=== PATIENT | male | born 1965 | race American Indian/Alaskan Native ===

== ENCOUNTER 2016-08-09 11:43 | Observation (INO) | payer MEDICAID ==
[2016-08-09] MEDS ORDERED: Sodium Chloride 0.9% 1,000 ML IV STA (12:41)
--- NOTE | 2016-08-09 12:45 | ED PDOC ---
HPI: General Adult Time Seen by Provider: 08/09/16 12:28 Chief Complaint (Nursing): Weakness/Neurological Deficit Chief Complaint (Provider): Weakness History Per: Patient, Family History/Exam Limitations: no limitations Onset/Duration Of Symptoms: Days Additional Complaint(s): Pt. with weakness all over, nasal congestion. Has high blood pressure and low blood sugar at doctor's office yesterday so was sent to the ED. Was suppose to come yesterday, but decided to come today. Feels sleepy and tired. No chest pain or dyspnea. Feels light-headed. No abd pain, dysuria. No numbness, tingles. Past Medical History Reviewed: Nursing Documentation, Vital Signs Vital Signs: Last Vital Signs Temp 97 F L 08/09/16 12:01 Pulse 63 08/09/16 12:01 Resp 16 08/09/16 12:01 BP 127/59 L 08/09/16 12:01 Pulse Ox 98 08/09/16 12:46 - Medical History PMH: Diabetes (Insulin dependent), HIV, HTN, Hypercholesterolemia, Chronic Kidney Disease - Family History Family History: States: Unknown Family Hx - Living Arrangements Living Arrangements: With Family - Social History Current smoker - smoking cessation education provided: Yes Alcohol: None - Immunization History Hx Tetanus Toxoid Vaccination: No Hx Influenza Vaccination: No Hx Pneumococcal Vaccination: No - Home Medications Home Medications: Ambulatory Orders Medication Instructions Recorded Docusate [Colace] 100 mg PO TID #90 cap 04/06/15 Insulin Human NPH/Reg [humulin 20 units SC DAILY 04/06/15 70/30 70 U/Ml-30 U/Ml 10 Ml] Magnesium Citrate [Citrate of Mag] 300 ml PO ONCE #1 bottle 04/06/15 Methadone Hydrochloride [Methadone] 30 mg PO DAILY 04/06/15 - Allergies Allergies/Adverse Reactions: Allergies Allergy/AdvReac Type Severity Reaction Status Date / Time No Known Allergies Allergy Unverified 01/21/15 20:54 Review of Systems ROS Statement: Except As Marked, All Systems Reviewed And Found Negative Constitutional: Positive for: Weakness ENT: Positive for: Nose Pain, Nose Congestion Cardiovascular: Positive for: Light Headedness Neurological: Positive for: Weakness, Dizziness Physical Exam - Reviewed Nursing Documentation Reviewed: Yes Vital Signs Reviewed: Yes - Physical Exam Appears: Positive for: Non-toxic, No Acute Distress Head Exam: Positive for: ATRAUMATIC, NORMAL INSPECTION, NORMOCEPHALIC Skin: Positive for: Normal Color, Warm, DRY Eye Exam: Positive for: EOMI, Normal appearance, PERRL ENT: Positive for: Nasal Congestion. Negative for: Tonsillar Exudate Neck: Positive for: Normal, Painless ROM, Supple Cardiovascular/Chest: Positive for: Regular Rate, Rhythm. Negative for: Edema Respiratory: Positive for: CNT, Normal Breath Sounds Gastrointestinal/Abdominal: Positive for: Normal Exam, Bowel Sounds, Soft. Negative for: Tenderness Back: Positive for: Normal Inspection. Negative for: L CVA Tenderness, R CVA Tenderness Extremity: Positive for: Normal ROM. Negative for: Tenderness, Pedal Edema Neurologic/Psych: Positive for: Alert, commissioning editor II-XII, Oriented. Negative for: Motor/Sensory Deficits - Laboratory Results Result Diagrams: 08/09/16 13:35 08/09/16 13:35 Interpretation Of Abn Labs: no acute - ECG ECG: Positive for: Interpreted By Me, Viewed By Me ECG Rhythm: Positive for: Normal QRS, Normal ST Segment, Sinus Rhythm O2 Sat by Pulse Oximetry: 98 Pulse Ox Interpretation: Normal - Radiology X-Ray: Interpreted by Me, Viewed By Me, Read By Radiologist X-Ray Interpretation: Other (effusion) - Progress ED Course And Treament: 1538: Stable. AAOx3. Pain free. Will need further eval for weakness. [facility] resident Dr. Peñaloza spoken to and will admit. Disposition - Clinical Impression Clinical Impression: Episode of generalized weakness - Patient ED Disposition Is Patient to be Admitted: Yes Counseled Patient/Family Regarding: Studies Performed, Diagnosis - Disposition Disposition Time: 15:39 Condition: FAIR - Pt Status Changed To: Hospital Disposition Of: Observation - POA Present On Arrival: None
--- NOTE | 2016-08-09 13:09 | CT ---
PROCEDURE: CT HEAD WITHOUT CONTRAST. HISTORY: headache COMPARISON: None available. TECHNIQUE: Axial computed tomography images were obtained through the head/brain without intravenous contrast. Radiation dose: Total exam DLP = 819.68 mGy-cm. FINDINGS: HEMORRHAGE: No intracranial hemorrhage. BRAIN: No mass effect or edema. Intracranial atherosclerotic calcifications. The davis-white matter differentiation appears intact.Please note that MRI with diffusion imaging is more sensitive in the detection of acute ischemic event. VENTRICLES: No hydrocephalus. CALVARIUM: Unremarkable. PARANASAL SINUSES: Unremarkable as visualized. No significant inflammatory changes. MASTOID AIR CELLS: Unremarkable as visualized. No inflammatory changes. OTHER FINDINGS: None. IMPRESSION: No acute intracranial pathology identified.
[2016-08-09 13:46] LABS: VENOUS BLOOD GAS BASE EXCESS 2.2 mmol/L (0.0-2.0); VENOUS BLOOD GAS PCO2 52 mmHg (40-60); VENOUS BLOOD PH 7.35 (7.32-7.43)
[2016-08-09 13:51] LABS: BASO % 0.6 % (0.0-2.0); EOS # 0.2 K/uL (0.0-0.7); LYMPH # 1.2 K/uL (1.0-4.3); LYMPH % 37.6 % (20.0-40.0); MEAN CELL VOLUME 91.7 fl (80.0-94.0); MEAN CORPUSCULAR HGB CONC 32.7 g/dL (33.0-37.0); MEAN PLATELET VOLUME 7.8 fl (7.2-11.7); MONO # 0.5 K/uL (0.0-0.8); MONO % 17.1 % (0.0-10.0); NEUT # 1.3 K/uL (1.8-7.0); NEUT % 39.7 % (50.0-75.0); NRBC % 0.3 % (0.0-0.0); RED CELL DISTRIBUTION WIDTH 14.3 % (11.5-14.5); WHITE BLOOD COUNT 3.2 K/uL (4.8-10.8)
[2016-08-09 14:02] LABS: ALB/GLOB RATIO 0.7 (1.0-2.1); ALKALINE PHOSPHATASE 101 U/L (38-126); ALT/SGPT 44 U/L (21-72); AST/SGOT 73 U/L (17-59); BILIRUBIN,TOTAL 0.4 mg/dl (0.2-1.3); BLOOD UREA NITROGEN 12 mg/dl (9-20); CALCIUM 9.3 mg/dL (8.4-10.2); CARBON DIOXIDE 25 mmol/L (22-30); CHLORIDE 103 mmol/L (98-107); GFR AFRICAN-AMERICAN > 60; GLUCOSE,RANDOM 91 mg/dL (75-110); SODIUM 141 mmol/l (132-148)
[2016-08-09 14:04] LABS: PARTIAL THROMBOPLASTIN TIME 26.1 SECONDS (23.3-32.5)
--- NOTE | 2016-08-09 14:23 | CARD ---
APPROVED REPORT EKG Measurement Heart [id number] <Conclusion> Sinus bradycardia Otherwise normal ECG
--- NOTE | 2016-08-09 15:23 | RAD ---
HISTORY: weakness COMPARISON: Chest x-ray performed 07/21/16 TECHNIQUE: Chest, one view. FINDINGS: LUNGS: Right basilar atelectasis. Please note that chest x-ray has limited sensitivity for the detection of pulmonary masses. PLEURA: Small right pleural effusion. No definite pneumothorax . CARDIOVASCULAR: Cardiomegaly. OSSEOUS STRUCTURES: Degenerative changes of the spine. VISUALIZED UPPER ABDOMEN: Mild elevation of the right hemidiaphragm. OTHER FINDINGS: None. IMPRESSION: Right basilar atelectasis. Small right pleural effusion.
--- NOTE | 2016-08-09 16:13 | CP.PCM.HP ---
History of Present Illness - History of Present Illness History of Present Illness: 51 year old male with a history of HIV (07/2016 CD4- 343; 2.982 [id number]; 980 copies/ mL), DM II (last HgbA1c: 6.1%), HCV (viral undetectable), Hypercholesterolemia, polysubstance abuse presenting from home with complaints of generalized malaise. He was seen in yesterday by Justino Ulloa APN at the [facility] and was advised to go to the ER. He signed documentation whereby he was permitted to leave against medical advice- in turn, never going to the ER. Today he continues to complain of decreased energy level, nausea with 2 episodes of vomitus (non bloody, non bilious). No abdominal pain. Decreased appetite. No chest pain. Reports chronic cough, scant sputum production. Afebrile. Status post outpatient treatment with Doxycycline. Present on Admission - Present on Admission Any Indicators Present on Admission: No Review of Systems - Review of Systems Review of Systems: As per HPI. Past Patient History - Infectious Disease Hx of Infectious Diseases: None - Past Social History Alcohol: None - CARDIAC Hx Hypercholesterolemia: Yes Hx Hypertension: Yes - RENAL Hx Chronic Kidney Disease: Yes - ENDOCRINE/METABOLIC Hx Endocrine Disorders: Yes Hx Diabetes Mellitus Type 2: Yes Other/Comment: IDDM - HEMATOLOGICAL/ONCOLOGICAL Hx Human Immunodeficiency Virus (HIV): Yes - PSYCHIATRIC Hx Substance Use: Yes Other/Comment: ETOH and drug abuse Meds Allergies/Adverse Reactions: Allergies Allergy/AdvReac Type Severity Reaction Status Date / Time No Known Allergies Allergy Unverified 01/21/15 20:54 Physical Exam - Constitutional Additional comments: Slighty withdrawn, slouched over, hydrosis - Head Exam Head Exam: ATRAUMATIC, NORMOCEPHALIC - Eye Exam Eye Exam: EOMI, Normal appearance - ENT Exam ENT Exam: Mucous Membranes Moist - Neck Exam Neck exam: Negative for: Lymphadenopathy - Respiratory Exam Respiratory Exam: NORMAL BREATHING PATTERN. absent: Rales, Rhonchi - Cardiovascular Exam Cardiovascular Exam: REGULAR RHYTHM, +S1, +S2 - GI/Abdominal Exam GI & Abdominal Exam: Soft. absent: Distended, Tenderness - Extremities Exam Extremities exam: Positive for: pedal pulses present. Negative for: pedal edema , tenderness - Neurological Exam Neurological exam: Alert, CN II-XII Intact Results - Vital Signs Recent Vital Signs: Last Vital Signs Temp 97 F L 03/21/17 12:01 Pulse 63 08/09/16 12:01 Resp 16 08/09/16 12:01 BP 127/59 L 08/09/16 12:01 Pulse Ox 98 08/09/16 15:39 - Labs Result Diagrams: 08/09/16 13:35 08/09/16 13:35 Assessment & Plan - Assessment and Plan (Free Text) Plan: 1. Human immunodeficiency virus (HIV) disease, asymptomatic Labs reviewed from 07/20/2016 FK2=692, HH=472 No anemia noted Occasional nonadherence to medications 2. Cough and generalized malaise CXR- Right sided infiltrate vs. atelactesis CT SCAN CHEST- Questionable atelactesis on right side Pulse ox 100% Status post doxycycline for atypical PNA; CAP treatment: Levaquin 3. Hypertension Controlled in ER Continue TIFFANIE as Rx'd as outpatient 4. Diabetes II, controlled Outpatient medications (HELD): Humulin 70/30 Suspension, (70-30) 100 UNIT/ML, 20 units, Subcutaneous, daily with breakfast Humulin 70/30 Suspension, (70-30) 100 UNIT/ML, 15 units, Subcutaneous, daily with dinner Acchuchecks ACHS LDISS Overcorrected as outpatient HGBa1C: 6.1% microalbumin/cr ratio=45.7 Will supplement Glucerna 5. Hyperlipidemia Continue statin therapy 6. Substance abuse UDS PENDING Withdrawal protocol with Ativan 7. Chronic hepatitis C VL=undectable. 8. Px Lovenox 40mg SC
[2016-08-09] MEDS ORDERED: Dextrose 50% SYRINGE Inj (50 ml) IV PRN (16:45)
[2016-08-09] MEDS ORDERED: Glucagon Recombinant 1 mg Inj IM PRN (16:45)
--- NOTE | 2016-08-09 17:05 | CT ---
CT chest without IV contrast Indication: Chronic cough, pleural effusion Technique: Contiguous axial images were obtained through the chest without intravenous contrast enhancement. Sagittal and coronal reconstructions were generated and reviewed. Radiation dose (DLP): 541.02 MGy-cm. Comparison: Chest x-ray performed 08/09/16 Findings: Visualized portions of the inferior thyroid gland appear unremarkable. The unenhanced mediastinal and hilar vascular structures appear grossly unremarkable. The heart appears within normal limits of size. No significant pericardial effusion. Mild right lower lobe atelectasis or infiltrate. Mild left basilar atelectasis. No pleural effusion. No pneumothorax. No suspicious pulmonary nodules measuring greater than 5 mm. Small hiatal hernia. Limited visualization of the noncontrast upper abdomen: Partially imaged hepatomegaly. 12 mm posterior left midpole hypodense renal lesion. No acute osseous abnormality is detected. Impression: Mild right lower lobe atelectasis or infiltrate. Mild left basilar atelectasis. 12 mm posterior left midpole hypodense renal lesion, possibly cyst.
[2016-08-09] MEDS: Emtricitabine-Tenofovir 200 mg-300 mg Tab PO SCH (19:50)
[2016-08-09] MEDS: Insulin Regular 100 units/ml SC SCH (19:51)
[2016-08-09] MEDS: Enoxaparin 40 mg Syringe SC SCH (19:51)
[2016-08-10] MEDS: Insulin Regular 100 units/ml SC SCH ×3 (00:36→12:16)
[2016-08-10] MEDS: Emtricitabine-Tenofovir 200 mg-300 mg Tab PO SCH (08:25)
[2016-08-10] MEDS: Enoxaparin 40 mg Syringe SC SCH (08:25)
--- NOTE | 2016-08-10 09:15 | CARD ---
APPROVED REPORT EKG Measurement Heart [id number] <Conclusion> Sinus bradycardia Voltage criteria for left ventricular hypertrophy Abnormal ECG
--- NOTE | 2016-08-10 11:37 | CP.PCM.PN ---
Subjective - Date & Time of Evaluation Date of Evaluation: 08/10/16 Time of Evaluation: 11:34 - Subjective Subjective: 51 year old male with PMHx of history of HIV (07/2016 CD4- 343; 2.982 [id number] ; 980 copies/ mL), DM II (last HgbA1c: 6.1%), HCV (viral undetectable), Hypercholesterolemia, polysubstance abuse was seen at bedside resting comfortably. Patient admits to being hot and sleep. He states that time he used heroin was 2 days ago. He denies any chest pain, shortness of breath, headache, blurred vision, palpitations, nausea, vomiting, abdominal pain. Objective - Vital Signs/Intake and Output Vital Signs (last 24 hours): Temp Pulse Resp BP Pulse Ox 98.8 F 62 19 189/112 H 100 08/10/16 06:43 08/10/16 10:30 08/10/16 10:30 08/10/16 10:30 08/10/16 10:30 - Medications Medications: Current Medications Aspirin (Aspirin Chewable) 81 mg PO DAILY [facility] Last Admin: 08/10/16 08:25 Dose: 81 mg Atorvastatin Calcium (Lipitor) 40 mg PO DAILY [facility] Last Admin: 08/10/16 08:25 Dose: 40 mg Dextrose (Dextrose 50% Inj) 0 ml IV STAT PRN; Protocol PRN Reason: Hyglycemia Protocol Dextrose (Glutose 15) 0 gm PO ONCE PRN; Protocol PRN Reason: Hypoglycemia Protocol Efavirenz (Sustiva) 600 mg PO DAILY [facility] Last Admin: 08/10/16 08:25 Dose: 600 mg Emtricitabine/Tenofovir (Truvada 200 Mg-300 Mg) 1 tab PO DAILY [facility] Last Admin: 08/10/16 08:25 Dose: 1 tab Enalapril Maleate (Vasotec) 10 mg PO DAILY [facility] Last Admin: 08/10/16 07:48 Dose: 10 mg Enoxaparin Sodium (Lovenox) 40 mg SC DAILY [facility] PRN Reason: Protocol Last Admin: 08/10/16 08:25 Dose: 40 mg Glucagon (Glucagen Diagnostic Kit) 0 mg IM STAT PRN; Protocol PRN Reason: Hypoglycemia Protocol Levofloxacin/Dextrose (Levaquin 750mg) 150 mls @ 100 mls/hr IVPB DAILY [facility] Insulin Human Regular (Humulin R) 0 units SC ACCU-CHECK [facility] PRN Reason: Protocol Last Admin: 08/10/16 07:17 Dose: Not Given Lorazepam (Ativan) 2 mg IVP Q6 PRN PRN Reason: Symptoms of Withdrawl Methadone HCl (Methadone) 30 mg PO DAILY [facility] - Labs Labs: PT 13.6 SECONDS (9.6-11.2) H 08/09/16 13:35 INR 1.31 (0.92-1.08) H 08/09/16 13:35 APTT 26.1 SECONDS (23.3-32.5) 08/09/16 13:35 - Head Exam Head Exam: NORMAL INSPECTION - Eye Exam Eye Exam: EOMI, Normal appearance - Respiratory Exam Respiratory Exam: NORMAL BREATHING PATTERN. absent: Rales, Rhonchi - Cardiovascular Exam Cardiovascular Exam: REGULAR RHYTHM, +S1, +S2 - GI/Abdominal Exam GI & Abdominal Exam: Soft, Normal Bowel Sounds. absent: Tenderness - Extremities Exam Extremities Exam: absent: Calf Tenderness, Pedal Edema, Tenderness - Back Exam Back Exam: NORMAL INSPECTION - Neurological Exam Neurological Exam: Alert, Oriented x3 - Skin Skin Exam: Normal Color, Warm Assessment and Plan - Assessment and Plan (Free Text) Assessment: 51 year old male with PMHx of HIV (07/2016 CD4- 343; 2.982 [id number]; 980 copies/ mL), DM II (last HgbA1c: 6.1%), HCV (viral undetectable), Hypercholesterolemia, polysubstance abuse presenting for generalized malaise. Plan: 1.HIV disease, asymptomatic Labs reviewed from 07/20/2016 UZ9=286, HG=584 No anemia noted Occasional nonadherence to medications 2. Cough and generalized malaise CXR- Right sided infiltrate vs. atelactesis CT SCAN CHEST- Questionable atelactesis on right side Pulse ox 100% Status post doxycycline for atypical PNA; CAP treatment: Levaquin 3. Hypertension Controlled in ER Vasotec 10 mg PO daily Hydralazine 5 mg given intially, 10mg given 2 hours after 4. Diabetes II, controlled Outpatient medications (HELD): Humulin 70/30 Suspension, (70-30) 100 UNIT/ML, 20 units, Subcutaneous, daily with breakfast Humulin 70/30 Suspension, (70-30) 100 UNIT/ML, 15 units, Subcutaneous, daily with dinner Acchuchecks ACHS LDISS Overcorrected as outpatient HGBa1C: 6.1% microalbumin/cr ratio=45.7 Will supplement Glucerna 5. Hyperlipidemia Atorvastatin 40mg PO daily 6. Substance abuse UDS positive for opiates and cocaine Withdrawal protocol with Ativan 7. Chronic hepatitis C VL=undectable. 8.DVT Ppx Lovenox 40mg SC daily
[2016-08-10 13:39] VITALS: RESP 19; O2SAT 99
--- NOTE | 2016-08-10 14:47 | CP.PCM.DIS ---
Provider - Provider Date of Admission: 08/09/16 15:36 Attending physician: Ericka Roca MD Primary care physician: Codey Cutler MD Time Spent in preparation of Discharge (in minutes): 45 Hospital Course - Lab Results Lab Results: Most Recent Lab Values WBC 3.2 K/uL (4.8-10.8) L 08/09/16 13:35 RBC 4.03 Mil/uL (4.40-5.90) L 08/09/16 13:35 Hgb 12.1 g/dL (12.0-18.0) 08/09/16 13:35 Hct 37.0 % (35.0-51.0) 08/09/16 13:35 MCV 91.7 fl (80.0-94.0) 08/09/16 13:35 MCH 30.0 pg (27.0-31.0) 08/09/16 13:35 MCHC 32.7 g/dL (33.0-37.0) L 08/09/16 13:35 RDW 14.3 % (11.5-14.5) 08/09/16 13:35 Plt Count 245 K/uL (130-400) 08/09/16 13:35 MPV 7.8 fl (7.2-11.7) 08/09/16 13:35 Neut % (Auto) 39.7 % (50.0-75.0) L 08/09/16 13:35 Lymph % (Auto) 37.6 % (20.0-40.0) 08/09/16 13:35 Bent % (Auto) 17.1 % (0.0-10.0) H 08/09/16 13:35 Eos % (Auto) 5.0 % (0.0-4.0) H 08/09/16 13:35 Baso % (Auto) 0.6 % (0.0-2.0) 08/09/16 13:35 Neut # 1.3 K/uL (1.8-7.0) L 08/09/16 13:35 Lymph # 1.2 K/uL (1.0-4.3) 08/09/16 13:35 Bent # 0.5 K/uL (0.0-0.8) 08/09/16 13:35 Eos # 0.2 K/uL (0.0-0.7) 08/09/16 13:35 Baso # 0.0 K/uL (0.0-0.2) 08/09/16 13:35 PT 13.6 SECONDS (9.6-11.2) H 08/09/16 13:35 INR 1.31 (0.92-1.08) H 08/09/16 13:35 APTT 26.1 SECONDS (23.3-32.5) 08/09/16 13:35 pO2 52 mm/Hg (30-55) 08/09/16 13:40 VBG pH 7.35 (7.32-7.43) 08/09/16 13:40 VBG pCO2 52 mmHg (40-60) 08/09/16 13:40 VBG HCO3 26.2 mmol/L 08/09/16 13:40 VBG Total CO2 30.3 mmol/L (22-28) H 08/09/16 13:40 VBG O2 Sat (Calc) 87.8 % (40-65) H 08/09/16 13:40 VBG Base Excess 2.2 mmol/L (0.0-2.0) H 08/09/16 13:40 VBG Potassium 4.0 mmol/L (3.6-5.2) 08/09/16 13:40 Sodium 136.0 mmol/L (132-148) 08/09/16 13:40 Chloride 105.0 mmol/L (98-107) 08/09/16 13:40 Glucose 85 mg/dL (75-110) 08/09/16 13:40 Lactate 1.5 mmol/L (0.7-2.1) 08/09/16 13:40 FiO2 21.0 % 08/09/16 13:40 Sodium 141 mmol/l (132-148) 08/09/16 13:35 Potassium 4.0 MMOL/L (3.6-5.0) 08/09/16 13:35 Chloride 103 mmol/L (98-107) 08/09/16 13:35 Carbon Dioxide 25 mmol/L (22-30) 08/09/16 13:35 Anion Gap 17 (10-20) 08/09/16 13:35 BUN 12 mg/dl (9-20) 08/09/16 13:35 Creatinine 0.8 mg/dL (0.8-1.5) 08/09/16 13:35 Est GFR ( Amer) > 60 08/09/16 13:35 Est GFR (Non-Af Amer) > 60 08/09/16 13:35 POC Glucose (mg/dL) 91 mg/dL (65-110) 08/10/16 06:37 Random Glucose 91 mg/dL (75-110) 08/09/16 13:35 Calcium 9.3 mg/dL (8.4-10.2) 08/09/16 13:35 Total Bilirubin 0.4 mg/dl (0.2-1.3) 08/09/16 13:35 AST 73 U/L (17-59) H 08/09/16 13:35 ALT 44 U/L (21-72) 08/09/16 13:35 Alkaline Phosphatase 101 U/L (38-126) 08/09/16 13:35 Troponin I < 0.0120 ng/mL (0.00-0.120) 08/09/16 13:35 Total Protein 9.0 G/DL (6.3-8.2) H 08/09/16 13:35 Albumin 3.8 g/dL (3.5-5.0) 08/09/16 13:35 Globulin 5.2 gm/dL (2.2-3.9) H 08/09/16 13:35 Albumin/Globulin Ratio 0.7 (1.0-2.1) L 08/09/16 13:35 Lipase 365 U/L (23-300) H 08/09/16 17:30 TSH 3rd Generation 0.28 mIU/ML (0.46-4.68) L 08/10/16 07:00 Venous Blood Potassium 4.0 mmol/L (3.6-5.2) 08/09/16 13:40 Urine Opiates Screen Positive (NEGATIVE) H 08/09/16 18:30 Urine Methadone Screen Negative (NEGATIVE) 08/09/16 18:30 Ur Barbiturates Screen Negative (NEGATIVE) 08/09/16 18:30 Ur Phencyclidine Scrn Negative (NEGATIVE) 08/09/16 18:30 Ur Amphetamines Screen Negative (NEGATIVE) 08/09/16 18:30 U Benzodiazepines Scrn Negative (NEGATIVE) 08/09/16 18:30 U Oth Cocaine Metabols Positive (NEGATIVE) H 08/09/16 18:30 U Cannabinoids Screen Negative (NEGATIVE) 08/09/16 18:30 Influenza Typ A,B (EIA) Negative for flu a/b (NEGATIVE) 08/09/16 13:35 - Hospital Course Hospital Course: 51 year old male with PMHx of HIV (07/2016 CD4- 343; 2.982 [id number]; 980 copies/ mL), DM II (last HgbA1c: 6.1%), HCV (viral undetectable), Hypercholesterolemia, polysubstance abuse was admitted for generalized malaise and cough. Patient was given levaquin in ED. Head CT negative and Chest CT showed Mild right lower lobe atelectasis or infiltrate, Mild left basilar atelectasis. in ED.Today, patient has more energy and feels better. Patient had elevated blood pressure in the ED which was treated and controlled to 135/ 89. Patient to take levaquin 500 mg daily for 7 days. Patient to make an appointment to see Dr. Espinoza next week for follow up of hypertension. Discharge Exam - Head Exam Head Exam: NORMAL INSPECTION Discharge Plan - Discharge Medications Prescriptions: Efavirenz/Emtricitabine/Teno [Atripla 600 MG-200 MG-300 MG] 1 tab PO DAILY #30 tab Levofloxacin [Levaquin] 500 mg PO DAILY #7 tablet - Follow Up Plan Condition: FAIR Disposition: HOME/ ROUTINE Additional Instructions: Please follow up with Dr. Espinoza next week for follow up of blood pressure Patient to take Levaquin 500 mg daily for 7 Days Referrals: Codey Cutler MD [Primary Care Provider] - Vonda Espinoza MD [Provisional Staff] -
[2016-08-10 15:01] VITALS: BP 135/89; PULSE 75; TEMP 98.4
== END 2016-08-10 15:35 | disposition home or self-care (01) ==
LOC: H.ER 11:43 → H.ERHOLD 15:36
PROVIDERS: ADMIT Family Medicine Geriatric Medicine; ATTEND Family Medicine Geriatric Medicine
DX: R53.1 Weakness (principal); Z21 Asymptomatic human immunodeficiency virus [HIV] infection status; I12.9 Hypertensive chronic kidney disease with stage 1 through stage 4 chronic kidney disease, or unspecified chronic kidney disease; N18.9 Chronic kidney disease, unspecified; E11.22 Type 2 diabetes mellitus with diabetic chronic kidney disease; E78.00 Pure hypercholesterolemia, unspecified; B18.2 Chronic viral hepatitis C; F19.10 Other psychoactive substance abuse, uncomplicated; Z79.4 Long term (current) use of insulin